=== PATIENT | female | born 2000 | race Caucasian/White ===

== ENCOUNTER 2021-12-10 21:51 | Emergency (ER) | payer MEDICAID ==
[~2021-12-10] VITALS: Ht 160 cm; Wt 117.0 kg
[2021-12-10 22:05] VITALS: BP_SYST 120
--- NOTE | 2021-12-10 22:05 | NUR ---
Patient triaged and placed in waiting room. VSS and patient appears in no acute distress at this time. Accompanied by MOTHER, awaiting available bed, and MD notified of need for MSE.
--- NOTE | 2021-12-10 22:20 | NUR ---
PT STATES WHILE SHE WAS OUTSIDE, HER BROTHER NOTICED A RED SPOT ON HER RIGHT ALANIS. PT STATES NO PAIN OR ITCHING.
--- NOTE | 2021-12-11 00:20 | NUR ---
NO NEW CHANGES, PT RESTING WITH MOTHER IN WAITING ROOM.
--- NOTE | 2021-12-11 01:17 | NUR ---
DR BALLESTEROS OUT TO TRIAGE ROOM TO EVALUATE PT.
[2021-12-11] MEDS ORDERED: SULF1TAB48 PO (01:21)
--- NOTE | 2021-12-11 01:30 | NUR ---
Patient given written and verbal discharge instructions and verbalizes understanding. ER MD discussed with patient the results and treatment provided. Patient in stable condition. ID arm band removed. Rx of BACTRIM given. Patient educated on pain management and to follow up with PMD. Pain Scale 0/10. Opportunity for questions provided and answered. Medication side effect fact sheet provided.
== END 2021-12-11 01:30 | disposition home or self-care (01) ==
LOC: SED 21:51
DX: L03.115 Cellulitis of right lower limb (principal); Z79.899 Other long term (current) drug therapy
CPT/HCPCS: 99283

== ENCOUNTER 2022-10-03 19:11 | Emergency (ER) | payer MEDICAID ==
[~2022-10-03] VITALS: Ht 167.6 cm; Wt 124.7 kg
[~2022-10-03 19:11] MED LIST: SULF1TAB48 PO
[2022-10-03 19:21] VITALS: BP_SYST 152
--- NOTE | 2022-10-03 19:25 | NUR ---
Patient triaged and placed in waiting room. VSS and patient appears in no acute distress at this time. Accompanied by mother, awaiting available bed, and MD notified of need for MSE.
--- NOTE | 2022-10-03 19:35 | NUR ---
PT FROM HOME WITH C/O OF LEFT THIGH NUMBESS THAT STARTED THIS MORNING. PT DENIES INJURY TO THE AREA, AND DENIES PAIN. PT AMBULATORY AND A&O X4.
--- NOTE | 2022-10-03 19:59 | NUR ---
DR. HALEY WITH PATIENT IN TRIAGE FOR MSE.
[2022-10-03 21:24] VITALS: BP_SYST 152
--- NOTE | 2022-10-03 21:25 | NUR ---
Patient given written and verbal discharge instructions and verbalizes understanding. ER MD discussed with patient the results and treatment provided. Patient in stable condition. ID arm band removed. No Rx given. Patient educated on pain management and to follow up with PMD. Pain Scale 0/10 . Opportunity for questions provided and answered. Medication side effect fact sheet provided.
== END 2022-10-03 21:24 | disposition home or self-care (01) ==
LOC: SED 19:11
DX: R20.2 Paresthesia of skin (principal); Z79.899 Other long term (current) drug therapy
CPT/HCPCS: 93971; 99284

== ENCOUNTER 2023-09-22 23:09 | Emergency (ER) | payer MEDICAID ==
[~2023-09-22] VITALS: Ht 157.5 cm; Wt 129.3 kg
[2023-09-22 23:33] VITALS: BP_SYST 115; PULSE 101; RESP 18; TEMP 98.5; O2SAT 98
[2023-09-23] MEDS ORDERED: IBUP-1969 PO (00:45)
[2023-09-23 01:01] VITALS: BP_SYST 115; PULSE 101; RESP 18; TEMP 98.5; O2SAT 98
== END 2023-09-23 00:50 | disposition home or self-care (01) ==
LOC: SED 23:09
DX: S93.401A Sprain of unspecified ligament of right ankle, initial encounter (principal); W22.8XXA Striking against or struck by other objects, initial encounter; Y93.89 Activity, other specified; Y92.89 Other specified places as the place of occurrence of the external cause; Y99.8 Other external cause status
CPT/HCPCS: 99283